=== PATIENT | male | born 1990 ===

== ENCOUNTER 2020-11-10 14:59 | Emergency (ER) | payer SELFPAY ==
[2020-11-10 15:16] VITALS: BP 140/90
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
[2020-11-10] MEDS ORDERED: LIDOCAINE (2%) 20 MG/1 ML VIAL 20 ML MDV INFILTRATI ONE (16:59)
== END 2020-11-10 17:45 | disposition home or self-care (01) ==
LOC: ED 14:59
DX: S62.634A Displaced fracture of distal phalanx of right ring finger, initial encounter for closed fracture (principal); Z79.899 Other long term (current) drug therapy; W26.9XXA Contact with unspecified sharp object(s), initial encounter; Y93.89 Activity, other specified; Y92.89 Other specified places as the place of occurrence of the external cause; Y99.8 Other external cause status
CPT/HCPCS: 99283